=== PATIENT | female | born 1975 | race African-American/Black ===

== ENCOUNTER 2016-10-11 09:00 | Emergency (ER) ==
--- NOTE | 2016-10-11 09:55 | PROVIDER DOCUMENTATION ---
[facility] General - General Source: patient - History of Present Illness-[facility]ENT General [facility] Location: reports: ear (L) Quality of Pain: reports: aching Severity: reports: moderate Onset/Duration: reports: 24 hours ago Timing: reports: still present Prearrival Treatment: Initiated no prearrival treatment Locality of Occurance: Home Similar Symptoms Previously?: No Recently seen or treated by another doctor?: No <Natalio Bahena - Last Filed: 10/11/16 10:08> <Alisson Calloway - Last Filed: 10/11/16 10:20> - General Chief Complaint: Earache Stated Complaint: HEADACHE/EARACHE Time Seen by Provider: 10/11/16 09:43 Allergies/Adverse Reactions: Patient Allergies Allergy/AdvReac Type Severity Reaction Status Date / Time No Known Allergies Allergy Verified 10/11/16 09:40 Home Medications: Home Medication List Medication Instructions Recorded Confirmed Last Taken Type Amoxicillin/Pot Clavulanate 875 mg PO Q12HR #20 tablet 10/11/16 Unknown Rx [Augmentin] Mometasone Nasal Wagoner [Nasonex 1 spray EDWARD DAILY #1 bottle 10/11/16 Unknown Rx Nasal Wagoner] - History of Present Illness-[facility] General Nature of Presenting Problem: Reports to er with cc of left ear pain x 1 day with left sided headache. Denies sinus problems,foreign body,f. (Natalio Bahena) Review of Systems - Adult - REVIEW OF SYSTEMS - ADULT Constitutional: denies: chills, fever, fatique Eyes: reports: no symptoms reported Ears, Nose, Mouth & Throat: reports: ear pain. denies: sinus problem, throat pain Cardiovascular: denies: chest pain, irregular heart rate, orthopnea, syncope Respiratory: reports: no symptoms reported Gastrointestinal: reports: no symptoms reported Genitourinary: reports: no symptoms reported Musculoskeletal: reports: no symptoms reported Integumentary: reports: no symptoms reported Neurological: reports: headache/migraines. denies: numbness, paresthesia, seizure Psychiatric: reports: no symptoms reported Endocrine: reports: no symptoms reported Hematologic/Lymphatic: reports: no symptoms reported Allergic/Immunologic: reports: no symptoms reported All Other Systems: Reviewed and Negative <Natalio Bahena - Last Filed: 10/11/16 10:08> Past History - Adult - PAST MEDICAL HISTORY-ADULT Review of Records: reports: Nursing Assessment Review Major Childhood Illnesses: reports: denies history Cardiovascular: reports: denies history - IMMUNIZATION STATUS Childhood Immunizations: See Nurse Assessment Flu Vaccine: See Nurse Assessment - FAMILY HISTORY Family History: reviewed, not pertinent - SOCIAL HISTORY Smoking: other (former) Substance Use: none/never <Natalio Bahena - Last Filed: 10/11/16 10:08> Physical Exam- EENT - Physical Exam EENT Initial Vital Signs Reviewed: Yes General Appearance: appears well, alert, no apparent distress Eye Exam: bilateral eye: normal inspection, PERRL, EOMI Ear Exam: right ear: TM normal, left ear: TM bulging, bilateral ear: auricle normal, canal normal Nasal Exam: sinus tenderness (left maxillary sinus tenderness) Throat Exam: normal mouth inspection, pharynx normal Neck: non-tender, full range of motion, supple Respiratory: chest non-tender, lungs clear, normal breath sounds Cardiovascular: regular rate, rhythm, no edema Back Exam: normal inspection Extremity: normal gait, normal inspection Integumentary: normal color, normal turgor, warm/dry Neurologic: grossly normal, no motor/sensory deficits Psych/Mental Status: normal thought content, normal thought process <Alisson Calloway - Last Filed: 10/11/16 10:20> - PLAN OF CARE/RESULTS Progress/Plan/Lab Results: Vital Signs - 24 hr 10/11/16 09:36 Temperature 98.3 F Pulse Rate 86 Respiratory 18 Rate Blood Pressure 175/101 O2 Sat by Pulse 100 Oximetry (Natalio Bahena) Departure <Natalio Bahena - Last Filed: 10/11/16 10:08> - Departure Time of Disposition Order: 10:18 Certified Medical Emergency: Emergent <Alisson Calloway - Last Filed: 10/11/16 10:20> - Departure DIAGNOSIS: Otitis media of left ear Qualifiers: Otitis media type: serous Chronicity: acute Recurrence: not specified as recurrent Qualified Code(s): H65.02 - Acute serous otitis media, left ear Sinusitis, acute, maxillary Qualifiers: Recurrence: non-recurrent Qualified Code(s): J01.00 - Acute maxillary sinusitis , unspecified Disposition: HOME 01 Condition: Good Additional Instructions: ED Follow Up Instructions: You have been treated by a care provider in the Emergency Department. These instructions are being provided to you so you can have an understanding of how to care for yourself upon discharge. Upon discharge from the Emergency Department, you are responsible for making arrangements for follow-up care by a physician of your choice. Take all prescribed medications as directed. Return to the Emergency Department immediately for any new or worsening symptoms. You may call the Physician Referral phone number at [phone] to obtain a list of Physicians who are taking new patients. Prescriptions: Amoxicillin/Pot Clavulanate [Augmentin] 875 mg PO Q12HR #20 tablet Mometasone Nasal Wagoner [Nasonex Nasal Wagoner] 1 spray EDWARD DAILY #1 bottle Referrals: None,PCP [Primary Care Provider] - Princess Gordon MD [STAFF PHYSICIAN] - Attestation - Scribe Verification/Attestation Scribe:: Natalio Bahena Acting as Scribe for:: Alisson Calloway Scribe documention review:: This chart was documented by a scribe and accurately reflects the service the provider performed and the decisions made by the provider. <Natalio Bahena - Last Filed: 10/11/16 10:08> - Physician/ ISAAC Attestation Patient care was provided by Advanced Practice Provider:: Yes Advanced Practice Provider:: Alisson Calloway Advanced Practice Provider documentation review:: The Mid-level provider documentation, treatment plan and medical decision making was reviewed by the physician who agrees with all treatment and medical decision making by the MLP. <Alisson Calloway - Last Filed: 10/11/16 10:20> Physician Attestation
[2016-10-11 10:42] VITALS: BP 168/91
== END 2016-10-11 10:41 | disposition home or self-care (01) ==
LOC: P.ED 09:00
DX: H65.02 Acute serous otitis media, left ear (principal); J01.00 Acute maxillary sinusitis, unspecified; H92.02 Otalgia, left ear; R51 Headache; J34.89 Other specified disorders of nose and nasal sinuses
CPT/HCPCS: 99282